=== PATIENT | female | born 1970 | race American Indian/Alaskan Native ===

== ENCOUNTER 2016-08-31 08:43 | Emergency (ER) | payer MEDICAID, OTHER ==
[2016-08-31 09:05] VITALS: BP 109/71
--- NOTE | 2016-08-31 09:37 | EDM.PDOC ---
[id number] pain Time Seen by Provider: 08/31/16 09:20 Source: Reports: Patient History Limitations: Reports: No limitations - History of Present Illness INITIAL COMMENTS - FREE TEXT/NARRATIVE: 45-year-old female with an upper airway infection for the last several days developed increasing right ear pain overnight with some drainage this morning. Intensely painful. No fevers or chills, no shortness of breath, her throat pain is improved. Severity: moderate Location: Reports: right Ear Associated symptoms: Reports: other (Had a mild sore throat which is improved). Denies: fever/chills, nausea/vomiting - Related Data Allergies/ADRs: Allergies Allergy/AdvReac Type Severity Reaction Status Date / Time acetaminophen Allergy Swelling Verified 08/31/16 09:13 Sulfa (Sulfonamide Allergy Hives Verified 08/31/16 09:13 Antibiotics) Home Meds: Home Meds NK [No Known Home Meds] 08/31/16 [History] Past Medical History - Past Surgical History GI Surgical History: Reports: Appendectomy, Cholecystectomy Social & Family History - Tobacco Use Smoking Status *Q: Current Every Day Smoker Years of Tobacco use: 6 Packs/Tins Daily: 0.5 ED ROS ENT - Review of Systems Review Of Systems: See Below Constitutional: Denies: fever HEENT: Reports: Ear pain, Throat pain Respiratory: Reports: No Symptoms. Denies: Cough Cardiovascular: Denies: Chest pain GI/Abdominal: Denies: Nausea, Vomiting Skin: Reports: no symptoms Neurological: Reports: Headache ED EXAM, ENT - Physical Exam Exam: See Below Exam Limited By: No limitations General Appearance: alert, mild distress (Looks uncomfortable) Ears: other (Left tympanic membrane is normal, right is intensely inflamed with a bullous area) Mouth/Throat: Normal inspection Respiratory/Chest: no respiratory distress, lungs clear Course - Vital Signs Last Recorded V/S: Last Vital Signs Temp 97.6 F 08/31/16 09:02 Pulse 66 08/31/16 09:02 Resp 14 08/31/16 09:02 BP 109/71 08/31/16 09:02 Pulse Ox 98 08/31/16 09:02 - Re-Assessments/Exams Free Text/Narrative Re-Assessment/Exam: 08/31/16 09:35 The patient has bullous myringitis of the right middle ear. She'll be placed on Augmentin 875 twice a day for at least 5 days, and given 6 hydrocodone for pain control. She claims to have an allergy to "acetaminophen" but has taken Vicodin without problems in small doses. [employer] search shows no prescriptions in the past year. Departure - Departure Time of Disposition: 09:53 Disposition: Home, Self-Care 01 Condition: good Clinical Impression: Otitis media Qualifiers: Otitis media type: suppurative Laterality: right Chronicity: acute Recurrence: not specified as recurrent Spontaneous tympanic membrane rupture: with spontaneous rupture Qualified Code(s): H66.011 - Acute suppurative otitis media with spontaneous rupture of ear drum, right ear Instructions: Otitis Media, Adult, [id number] Referrals: PCP,None [Primary Care Provider] - Forms: ED Department Discharge Care Plan Goals: Take one antibiotic pill twice daily with food for at least 5 days. Take the stronger pain medication every 3 hours until pain improves. Recheck in 2-3 days if not improving satisfactorily.
== END 2016-08-31 09:58 | disposition home or self-care (01) ==
LOC: JP.ED 08:43
DX: H66.011 Acute suppurative otitis media with spontaneous rupture of ear drum, right ear (principal); F17.210 Nicotine dependence, cigarettes, uncomplicated; Z88.2 Allergy status to sulfonamides; Z88.8 Allergy status to other drugs, medicaments and biological substances; Z90.49 Acquired absence of other specified parts of digestive tract
CPT/HCPCS: 99283